=== PATIENT | male | born 1975 | race Caucasian/White ===

== ENCOUNTER 2018-11-16 07:15 | Emergency (ER) | payer OTHER ==
--- NOTE | 2018-11-16 07:32 | PDOC ---
History of Present Illness - General Chief Complaint: Shortness of Breath Stated Complaint: DIFFICULTY BREATHING,FEVER Time Seen by Provider: 11/16/18 07:31 History Source: Patient Exam Limitations: No Limitations - History of Present Illness Initial Comments: 11/16/18 08:05 43 year old male with PMH "wheezing" presented to ED for runny nose, sore throat , nasal congestion, white productive cough, fever x3 days. Pt stated x3 days ago he had fever of 101.3F that resolved with Tylenol use that day. He admitted to continued nasal congestion, chest tightness which caused him trouble sleeping last night, and brought him to the ED today. Pt does not have PCP because he just moved here from [place]. Allergies: NKDA Past History - Past Medical History Allergies/Adverse Reactions: Allergies Allergy/AdvReac Type Severity Reaction Status Date / Time No Known Allergies Allergy Verified 11/16/18 07:40 Home Medications: Ambulatory Orders Albuterol 0.083% Nebulizer Chelsey [Ventolin 0.083% Nebulizer Soln -] 1 neb NEB Q4H PRN #30 vial 11/16/18 Albuterol Sulfate Inhaler - [Ventolin HFA Inhaler -] 1 - 2 inh PO Q4H PRN #1 inhaler 11/16/18 Nebulizer Accessories [Air Filter] 1 each MC ONCE #1 each 11/16/18 Nebulizer Accessories [Mouthpiece] 1 each MC DAILY #1 each 11/16/18 Nebulizer [Truneb Nebulizer] 1 each MC DAILY #1 each 11/16/18 Review of Systems - Review of Systems Able to Perform ROS?: Yes Comments:: 11/16/18 08:08 General: admitted to fever, chills, sweats, generalized weakness. HEENT: admitted to sore throat, rhinorrhea, nasal congestion. denied. ear pain. Heart: denied chest pain, palpitations, syncope, diaphoresis. Respiratory: admitted to cough, sputum production. denied shortness of breath, hemoptysis. Abdomen: denied abdominal pain, nausea, vomiting, diarrhea, constipation, blood in stool. : denied dysuria, increased urinary frequency, hematuria, urinary incontinence , flank pain. Back: denied back pain. Musculoskeletal: denied joint pain, muscle pain, joint swelling. Neurological: admitted to headache. denied dizziness, numbness, tingling, weakness. Skin: denied rash, laceration, abrasion. *Physical Exam - Physical Exam Comments: 11/16/18 08:10 Constitutional: Well-nourished, Well-developed, appearing stated age. HEENT: head is normocephalic, atraumatic. EOMI. PERRLA. erythematous posterior pharynx. bilateral tonsillar swelling. exudate to posterior pharynx. dry oral mucosa. Neck: supple. Full ROM. no lymphadenopathy. Heart: regular rhythm. no murmurs, rubs or gallops. Lungs: intermittent rhonchi. no crackles. no stridor. no labored breathing. no accessory muscle use. Abdomen: soft, nontender. normal bowel sounds. no rebound, guarding, masses. Extremities: Peripheral pulses intact. No lower extremity edema. Neurological: CN 2-12 grossly intact. Moves all four extremities. Psych: awake, alert, oriented x3. Follows commands. Answers questions appropriately. Medical Decision Making - Medical Decision Making 11/16/18 08:13 43 year old male with PMH "wheezing" presented to ED for runny nose, sore throat , nasal congestion, white productive cough, chest tightness, fever x3 days. Initial Vital Signs Temp Pulse Resp BP Pulse Ox 98.8 F y 97 H 18 126/81 97 11/16/18 07:32 11/16/18 07:32 11/16/18 07:32 11/16/18 07:32 11/16/18 07:32 Afebrile. Borderline tachycardia. No tachypnea. No hypotension. No hypoxia on room air. o Labs ordered: rapid strep, influenza testing c Imaging ordered: CXR g Medications ordered: duoneb, tylenol 975 mg PO, Sudafed 30 mg PO 11/16/18 08:42 Rapid strep negative. c CXR report: negative for acute intrathoracic pathology. 11/16/18 08:55 Influenza testing A/B negative. Pt reassessed, reported improvement of symptoms. Examination: intermittent mild wheeze. Pt offered second duoneb, stated he was feeling better, and did not want it. Vital Signs Temperature 98.5 F 11/16/18 09:31 Pulse Rate y 82 11/16/18 09:31 Respiratory Rate 17 11/16/18 09:31 Blood Pressure 124/81 11/16/18 09:31 O2 Sat by Pulse Oximetry (%) 97 11/16/18 07:32 Tachycardia improved. No tachypnea. No hypoxia on room air. g Discharge medications: albuterol inhaler, albuterol solution, nebulizer machine Follow up: pt given [facility] pamphlet and informed to follow up *DC/Admit/Observation/Transfer Diagnosis at time of Disposition: Viral respiratory illness - Discharge Dispostion Disposition: HOME Condition at time of disposition: Improved Decision to Admit order: No - Prescriptions Prescriptions: Albuterol 0.083% Nebulizer Chelsey [Ventolin 0.083% Nebulizer Soln -] 1 neb NEB Q4H PRN #30 vial PRN Reason: Asthma Albuterol Sulfate Inhaler - [Ventolin HFA Inhaler -] 1 - 2 inh PO Q4H PRN #1 inhaler PRN Reason: Wheezing Nebulizer [Truneb Nebulizer] 1 each MC DAILY #1 each Nebulizer Accessories [Air Filter] 1 each MC ONCE #1 each Nebulizer Accessories [Mouthpiece] 1 each MC DAILY #1 each - Referrals - Patient Instructions Printed Discharge Instructions: DI for Viral Syndrome Additional Instructions: Your influenza A and B testing was negative. Your rapid strep testing was negative. Your chest X-ray was normal. You do not have pneumonia. You likely have a viral infection. Take Tylenol over the counter for your headache/fever. Take as advised on label. Take Sudafed over the counter for your nasal congestion. Take as advised on label. Drink lots of gatorade, pedialyte and water to stay hydrated. I have given you a referral to our primary care clinic. Call today and make the soonest appointment available. Your care is not complete until you follow up. Return to the Emergency Department for increasing pain, chest pain, shortness of breath, coughing up blood, fever>103F with tylenol use, fever>5 days, or any other new, worsening or concerning symptoms. I have sent a prescription to your pharmacy for a nebulizer machine, inhaler and nebulizer solution. - Post Discharge Activity Forms/Work/School Notes: Back to Work
[2018-11-16 07:54] VITALS: BMI 29.0
[2018-11-16] MEDS ORDERED: ALBUTEROL SO4 2.5/IPRATROPIUM 0.5 INH SOL 3 ML VIAL.NEB. NEB ONE ×2 (07:58→08:18)
[2018-11-16] MEDS ORDERED: PSEUDOEPHEDRINE HCL 30 MG TABLET PO ONE (08:02)
[2018-11-16] MEDS ORDERED: ACETAMINOPHEN 325 MG TABLET (FP) PO ONE (08:12)
[2018-11-16] MEDS ORDERED: ACETAMINOPHEN 325 MG TABLET (FP) ONE (08:18)
[2018-11-16 09:33] VITALS: BP 124/81; PULSE 82; TEMP 98.5
== END 2018-11-16 09:48 | disposition home or self-care (01) ==
LOC: JER 07:15
PROC: 3E0F7GC Introduction of Other Therapeutic Substance into Respiratory Tract, Via Natural or Artificial Opening (ICD-10-PCS; principal; 2018-11-16)
DX: J06.9 Acute upper respiratory infection, unspecified (principal)
CPT/HCPCS: 71046-TC-FY; 87070; 87804; 87880; 99283-25

== ENCOUNTER 2019-07-11 04:59 | Day surgery (SDC) | payer OTHER ==
[2019-07-10 15:32] VITALS: BMI 29.0
[2019-07-11] MEDS ORDERED: LIDOCAINE HCL 1%, 10 MG/ML (20ML VIAL) ONE (07:26)
[2019-07-11] MEDS ORDERED: BUPIVACAINE HCL/PF 0.5% (5 MG/ML) 30 ML VIAL IJ ONE ×2 (07:28→08:32)
[2019-07-11] MEDS ORDERED: MIDAZOLAM HCL 2 MG/2 ML SINGLE DOSE VIAL ONE (07:29)
[2019-07-11] MEDS ORDERED: PROPOFOL 20 ML ONE ×2 (07:30)
[2019-07-11] MEDS ORDERED: SUCCINYLCHOLINE CHLORIDE 200 MG/10 ML SYRINGE ONE (07:32)
[2019-07-11] MEDS ORDERED: ceFAZolin SODIUM 1 GM VIAL IVPB ONE (08:16)
[2019-07-11] MEDS ORDERED: LIDOCAINE HCL 1%, 10 MG/ML (50 mL VIAL) IJ ONE (08:32)
--- NOTE | 2019-07-11 09:07 | OP ---
Operative Note - Note: Operative Date: 07/11/19 Pre-Operative Diagnosis: right wrist mass, likely ganglion cyst Operation: excision mass right wrist Post-Operative Diagnosis: Same as Pre-op Surgeon: James Barrett Anesthesiologist/GROUTMAN: Jae Johnston Anesthesia: Local, MAC Specimens Removed: mass, likely ganglion cyst Estimated Blood Loss (mls): 0 Drains, Volume Out (mls): 0 Blood Volume Replaced (mls): 0 Fluid Volume Replaced (mls): 500 Operative Report Dictated: Yes
[2019-07-11 10:16] VITALS: TEMP 97.5
[2019-07-11 11:05] VITALS: BP 112/73; PULSE 67
--- NOTE | 2019-07-12 17:19 | PATH ---
Surgical Pathology Report Patient Name: SHLOMO METZGER Med. Rec. #: [id number] /Age/Gender: 1975 (Age: 44) / M Account: [id number] Location: [facility] SURGICAL Taken: 07/11/2019 Received: 07/11/2019 Reported: 07/12/2019 Physicians: James Barrett M.D. Specimen(s) Received MASS RIGHT WRIST Clinical History Right ganglion cyst Final Diagnosis WRIST, RIGHT, MASS, EXCISION: GANGLION CYST. Electronically Signed Julieta Osei M.D. Gross Description Received in formalin labeled "mass right wrist," is a 2.4 x 1.7 x 0.8 cm geller-yellow, irregular portion of soft tissue, consistent with a cyst. Wrinkle Chaser sections are submitted in one cassette. DL/07/11/2019 saudi/07/11/2019
--- NOTE | 2019-07-15 15:55 | OP ---
DATE OF OPERATION: 07/11/2019 PREOPERATIVE DIAGNOSIS: Dorsal right wrist mass, likely recurrent ganglion cyst. POSTOPERATIVE DIAGNOSIS: Dorsal right wrist mass, likely recurrent ganglion cyst. PROCEDURE: Excision of mass, right wrist. SURGEON: James Swann M.D. EXERCISER: None. ANESTHESIOLOGIST: QING Presley ANESTHESIA: MAC anesthesia, local injection of 15 mL of 0.5% Marcaine and 1% lidocaine mix. DRAINS: None. COMPLICATIONS: None. SPECIMEN: Mass of the right wrist. BLOOD LOSS: None. BLOOD GIVEN: None. INDICATIONS: The patient is a 44-year-old male with the preoperative diagnosis of a recurrent ganglion cyst in the dorsal aspect of the right wrist. It is quite large. After understanding the potential risks, complications, alternatives and benefits of surgery versus nonsurgical treatment, the patient elected to undergo this procedure. DESCRIPTION OF PROCEDURE: The patient was brought to the operating room, peripheral IV placed and IV sedation given. IV Ancef 2 g was given. The right upper extremity was prepped and draped in sterile fashion. The entire case was done under 3.0 loupe magnification. The right upper extremity was elevated and exsanguinated with an Esmarch bandage. The tourniquet was inflated to 250 mmg. A transverse incision was marked out with a marking pen over the previous incision. Then 15 mL 0.5% Marcaine and 1% lidocaine mix was injected in and around the surgical incision. The incision was made with a number 15 scalpel blade. Subcutaneous hemostasis was achieved with the bipolar cautery. Circumferential dissection done with Littler scissors through the scar tissue from the previous surgery, around the abnormal mass. At one point it popped and classic thick ganglion cyst-like fluid was expressed. An Allis clamp was placed onto the mass for retraction. Additional circumferential dissection was done with a fresh number 15 scalpel blade and Littler scissors. I was able to find its stalk going down to the dorsal wrist capsule. This was decapitated at its base. A small window opened up in the dorsal wrist capsule and the area cauterized. The area was copiously irrigated and washed out. A small amount of additional chronic inflammatory tissue was removed. The area was irrigated and washed out again. I did not see or feel any other abnormal tissue. Closure was done with 4-0 undyed Vicryl in the deep dermal layer and final skin approximation was done with a running subcuticular 4-0 Biosyn stitch. The area was then washed and dried, covered with Steri-Strips, 4 x 4 fluffs between the fingers, Webril and Coban. Total tourniquet time was 21 minutes. There were no complications during the case. The patient tolerated the procedure quite well and was brought to the ambulatory recovery room in stable condition. JAMES SWANN M.D. [id number]
== END 2019-07-11 10:50 | disposition home or self-care (01) ==
LOC: JASU-SURG 04:59
PROVIDERS: ATTEND Orthopaedic Surgery
PROC: 0LB50ZZ Excision of Right Lower Arm and Wrist Tendon, Open Approach (ICD-10-PCS; principal; 2019-07-11 08:00)
DX: M67.431 Ganglion, right wrist (principal)
CPT/HCPCS: 88304-TC; 94760

== ENCOUNTER 2020-11-30 04:26 | Day surgery (SDC) | payer OTHER ==
[2020-11-30 08:20] VITALS: BMI 26.6
[2020-11-30] MEDS ORDERED: PROPOFOL 20 ML ONE (10:31)
[2020-11-30] MEDS ORDERED: KETOROLAC TROMETHAMINE 30 MG/1 ML VIAL ONE (10:33)
[2020-11-30 12:13] VITALS: BP 137/86; PULSE 73; TEMP 97.7
== END 2020-11-30 12:40 | disposition home or self-care (01) ==
LOC: JASU-SURG 04:26
PROVIDERS: ATTEND Urology
PROC: 0TF3XZZ Fragmentation in Right Kidney Pelvis, External Approach (ICD-10-PCS; principal; 2020-11-30 10:00)
DX: N20.0 Calculus of kidney (principal)